=== PATIENT | female | born 1965 | race Two or more races ===

== ENCOUNTER 2021-02-24 08:59 | Outpatient (CLI) | payer OTHER | END 2021-02-24 09:01 | disposition home or self-care (01) | LOC: LAB 08:59 | PROVIDERS: ATTEND Internal Medicine Cardiovascular Disease | DX: I10 Essential (primary) hypertension (principal); E11.9 Type 2 diabetes mellitus without complications; E03.8 Other specified hypothyroidism; E78.2 Mixed hyperlipidemia; E55.9 Vitamin D deficiency, unspecified; M10.9 Gout, unspecified ==

== ENCOUNTER 2021-02-24 12:44 | Outpatient (CLI) | payer OTHER | END 2021-02-24 12:49 | disposition home or self-care (01) | LOC: SONOGRAMA 12:44 | PROVIDERS: ATTEND Internal Medicine Cardiovascular Disease | DX: E03.8 Other specified hypothyroidism (principal) ==

== ENCOUNTER 2021-03-07 08:14 | Outpatient (CLI) | payer OTHER | END 2021-03-07 08:24 | disposition home or self-care (01) | LOC: NUCLEAR 08:14 | PROVIDERS: ATTEND Internal Medicine Cardiovascular Disease | DX: M81.0 Age-related osteoporosis without current pathological fracture (principal); E55.9 Vitamin D deficiency, unspecified; I10 Essential (primary) hypertension; J44.9 Chronic obstructive pulmonary disease, unspecified ==

== ENCOUNTER 2021-09-10 11:04 | Inpatient (IN) | payer OTHER ==
[~2021-09-10] VITALS: Ht 154.9 cm; Wt 60.8 kg
[2021-09-10] MEDS ORDERED: COZAAR50 MG PO (11:53)
[2021-09-10] MEDS ORDERED: SYNTHROID75 MCG PO (11:53)
== END 2021-09-12 10:10 | disposition home or self-care (01) | DRG 760 ==
LOC: ER 11:04 → ICU-2 19:07 → MEDI 19:07
PROVIDERS: ADMIT Internal Medicine; ATTEND Internal Medicine
DX: N93.8 Other specified abnormal uterine and vaginal bleeding (principal); N39.0 Urinary tract infection, site not specified; T78.2XXA Anaphylactic shock, unspecified, initial encounter; T36.8X1A Poisoning by other systemic antibiotics, accidental (unintentional), initial encounter; Z20.822 Contact with and (suspected) exposure to COVID-19